=== PATIENT | male | born 1990 | race Caucasian/White ===

== ENCOUNTER 2017-01-11 02:49 | Emergency (ER) | payer OTHER ==
[~2017-01-11] VITALS: Ht 188 cm; Wt 82.0 kg
[~2017-01-11 02:49] MED LIST: BENZTROPINE; [UNRECOGNIZED DRUG - OTHER]
[2017-01-11 03:38] VITALS: BP 128/88
== END 2017-01-11 04:21 | disposition home or self-care (01) ==
LOC: ER 02:49
DX: F22 Delusional disorders (principal); F29 Unspecified psychosis not due to a substance or known physiological condition
CPT/HCPCS: 99281

== ENCOUNTER 2017-03-28 21:21 | Emergency (ER) | payer OTHER ==
[~2017-03-28] VITALS: Ht 177.8 cm; Wt 91.0 kg
[2017-03-28] MEDS ORDERED: SODIUM CHLORIDE 0.9% 1,000 ML IV ONE (21:33)
[2017-03-28] MEDS ORDERED: FENTANYL CITRATE/PF 50MCG/ML 2ML VIAL IV ONE (21:45)
[2017-03-28] MEDS ORDERED: TETANUS TOXOID,ADSORBED/PF 5 LF/0.5 ML VIAL IM ONE (21:45)
[2017-03-28] MEDS ORDERED: TETANUS, DIPHTHERIA, PERTUSSIS VAC/PF 0.5ML (>7YR OLD) IM ONE (22:30)
[2017-03-28] MEDS ORDERED: BACITRACIN ZINC 15GM TUBE TOP ONE (23:15)
[2017-03-29 00:19] VITALS: BP 128/85
== END 2017-03-29 00:25 | disposition home or self-care (01) ==
LOC: ER 21:31
DX: T20.00XA Burn of unspecified degree of head, face, and neck, unspecified site, initial encounter (principal); T23.011A Burn of unspecified degree of right thumb (nail), initial encounter; T31.0 Burns involving less than 10% of body surface; F17.200 Nicotine dependence, unspecified, uncomplicated; X08.8XXA Exposure to other specified smoke, fire and flames, initial encounter; Y93.89 Activity, other specified; Y92.018 Other place in single-family (private) house as the place of occurrence of the external cause
CPT/HCPCS: 90471; 90715; 96361; 96374; 99285; J3010; J7030

== ENCOUNTER 2017-03-31 04:10 | Emergency (ER) | payer MEDICAID, OTHER ==
[~2017-03-31] VITALS: Ht 180.3 cm; Wt 81.0 kg
[2017-03-31] MEDS ORDERED: PROPOFOL 10MG/ML 100ML 100 ML IV ONE ×2 (04:40→06:25)
[2017-03-31] MEDS ORDERED: SODIUM CHLORIDE 0.9% 1,000 ML IV ONE (04:48)
[2017-03-31] MEDS ORDERED: ETOMIDATE 2MG/ML 10ML VIAL IV ONE ×2 (05:00)
[2017-03-31] MEDS ORDERED: TETANUS, DIPHTHERIA, PERTUSSIS VAC/PF 0.5ML (>7YR OLD) IM ONE (05:00)
[2017-03-31] MEDS ORDERED: CEFAZOLIN 1000MG PREMIX 50 ML IV ONE (05:00)
[2017-03-31] MEDS ORDERED: PROPOFOL 10MG/ML 100ML 100 ML IV PRN (05:00)
[2017-03-31] MEDS ORDERED: STERILE WATER FOR INJECTION 10ML VIAL ONE (05:00)
[2017-03-31] MEDS ORDERED: VECURONIUM BROMIDE 10 MG/VIAL IV ONE ×2 (05:00)
[2017-03-31 05:37] LABS: BASOPHILS % 0.5 % (0.0-2.0); EOSINOPHILS % 0.5 % (0.0-5.0); HEMOGLOBIN. 13.8 g/dL (14.0-18.0); LYMPHOCYTES % 12.4 % (20.0-50.0); MEAN CORPUSCULAR HEMOGLOBIN 29.9 pg (28.0-32.0); MEAN CORPUSCULAR VOLUME 88.7 fL (80.0-94.0); NEUTROPHILS % 76.6 % (40.0-76.0); PLATELET 220 x1000/uL (130-400); RED BLOOD CELL COUNT 4.63 mill/uL (4.7-6.1); RED CELL DISTRIBUTION WIDTH 13.2 % (11.6-14.6)
[2017-03-31 05:40] LABS: CHLORIDE 107 mEq/L (98-107)
[2017-03-31] MEDS ORDERED: FENTANYL CITRATE/PF 50MCG/ML 2ML VIAL ONE (05:40)
[2017-03-31] MEDS ORDERED: FENTANYL CITRATE/PF 50MCG/ML 2ML VIAL IV ONE ×2 (05:45→06:00)
[2017-03-31 05:50] LABS: CARBON DIOXIDE 27 mEq/L (21-32); CREATINE KINASE 275 IU/L (39-308)
[2017-03-31] MEDS ORDERED: MORPHINE SULFATE 4 MG/ML CPJ (NOT FOR IM USE) IV ONE (06:00)
[2017-03-31] MEDS ORDERED: FENTANYL CITRATE/PF 500 MCG in SODIUM CHLORIDE 0.9% 40 ML IV PRN ×2 (06:00→06:15)
[2017-03-31 06:09] LABS: *AMPHETAMINES SCREEN URINE PRESUMTIVE POSITIVE (NEGATIVE); *BARBITURATES SCREEN URINE NEGATIVE (NEGATIVE); *BENZODIAZEPINES SCREEN URINE NEGATIVE (NEGATIVE); *COCAINE SCREEN URINE NEGATIVE (NEGATIVE); CANNABINOID URINE SCREEN PRESUMTIVE POSITIVE (NEGATIVE); METHADONE URINE SCREEN NEGATIVE (NEGATIVE); OPIATES URINE SCREEN NEGATIVE (NEGATIVE); PHENCYCLIDINE URINE SCREEN NEGATIVE (NEGATIVE)
[2017-03-31 06:14] VITALS: BP 117/68
== END 2017-03-31 06:47 | disposition short-term general hospital (02) ==
LOC: ER 04:10
DX: T20.20XA Burn of second degree of head, face, and neck, unspecified site, initial encounter (principal); T79.8XXA Other early complications of trauma, initial encounter; T31.0 Burns involving less than 10% of body surface; F20.9 Schizophrenia, unspecified; R00.0 Tachycardia, unspecified; J96.90 Respiratory failure, unspecified, unspecified whether with hypoxia or hypercapnia; X77.2XXA Intentional self-harm by other hot fluids, initial encounter; Y93.89 Activity, other specified; Y92.018 Other place in single-family (private) house as the place of occurrence of the external cause
CPT/HCPCS: 31500; 36415; 71045; 80053; 80305; 82550; 85025; 86850; 86900; 86901; 90471; 90715; 93005; 96365; 96375; 96376; 99291; A4216; J0690; J2270; J2704; J3010; J3490; J7030

== ENCOUNTER 2017-04-13 00:41 | Emergency (ER) | payer OTHER | END 2017-04-13 01:13 | disposition left against medical advice (07) | LOC: ER 00:41 | DX: R10.9 Unspecified abdominal pain (principal); Z53.21 Procedure and treatment not carried out due to patient leaving prior to being seen by health care provider ==

== ENCOUNTER 2017-06-25 15:16 | Emergency (ER) | payer OTHER ==
[~2017-06-25] VITALS: Ht 175.3 cm; Wt 85.0 kg
[2017-06-25 15:18] VITALS: BP 150/81
== END 2017-06-25 15:38 | disposition left against medical advice (07) ==
LOC: ER 15:26
DX: M79.603 Pain in arm, unspecified (principal); F20.9 Schizophrenia, unspecified; Z53.21 Procedure and treatment not carried out due to patient leaving prior to being seen by health care provider

== ENCOUNTER 2017-06-28 22:13 | Emergency (ER) | payer OTHER ==
[~2017-06-28] VITALS: Ht 188 cm; Wt 81.0 kg
[2017-06-29] MEDS ORDERED: OLANZAPINE 10 MG/VIAL IM ONE ×2 (00:30→17:30)
[2017-06-29] MEDS ORDERED: LORAZEPAM 2MG/ML CPJ IM ONE (00:30)
[2017-06-29 00:48] LABS: CHLORIDE 106 mEq/L (98-107)
[2017-06-29 00:52] LABS: BASOPHILS % 1.1 % (0.0-2.0); EOSINOPHILS % 0.6 % (0.0-5.0); HEMATOCRIT. 41.9 % (42.0-52.0); HEMOGLOBIN. 14.6 g/dL (14.0-18.0); LYMPHOCYTES % 26.1 % (20.0-50.0); MEAN CORPUSCULAR HEMOGLOBIN 31.7 pg (28.0-32.0); MEAN CORPUSCULAR VOLUME 91.2 fL (80.0-94.0); MONOCYTES % 10.5 % (2.0-8.0); NEUTROPHILS % 61.7 % (40.0-76.0); PLATELET 202 x1000/uL (130-400); RED BLOOD CELL COUNT 4.59 mill/uL (4.7-6.1)
[2017-06-29 00:53] LABS: ETHANOL BLOOD < 10 mg/dL
[2017-06-29 04:13] LABS: CLARITY URINE CLEAR (CLEAR); COLOR URINE YELLOW (YELLOW); KETONES URINE NEGATIVE (NEGATIVE); LEUKOCYTE ESTERASE URINE NEGATIVE (NEGATIVE); NITRITE URINE NEGATIVE (NEGATIVE); OCCULT BLOOD URINE NEGATIVE (NEGATIVE); PH URINE 6.5 (4.5-8.0); PROTEIN URINE NEGATIVE (NEGATIVE)
[2017-06-29 04:21] LABS: *AMPHETAMINES SCREEN URINE NEGATIVE (NEGATIVE); *BENZODIAZEPINES SCREEN URINE NEGATIVE (NEGATIVE); *COCAINE SCREEN URINE NEGATIVE (NEGATIVE)
[2017-06-29 04:22] LABS: CANNABINOID URINE SCREEN NEGATIVE (NEGATIVE); OPIATES URINE SCREEN NEGATIVE (NEGATIVE); PHENCYCLIDINE URINE SCREEN NEGATIVE (NEGATIVE)
[2017-06-29 04:44] LABS: *BARBITURATES SCREEN URINE NEGATIVE (NEGATIVE)
[2017-06-29 05:33] LABS: METHADONE URINE SCREEN NEGATIVE (NEGATIVE)
[2017-06-29 16:52] VITALS: BP 124/78
== END 2017-06-29 17:32 ==
LOC: ER 22:18
DX: F23 Brief psychotic disorder (principal); F12.10 Cannabis abuse, uncomplicated; F17.200 Nicotine dependence, unspecified, uncomplicated
CPT/HCPCS: 36415; 80053; 80305; 80307; 80329; 81003; 85025; 96372; 99285; G0482; J3490; Z7610; J2060